=== PATIENT | male | born 1935 | race African-American/Black ===

== ENCOUNTER 2018-02-06 10:30 | Inpatient (IN) | payer BC, MEDICAID ==
[~2018-02-06] VITALS: Ht 180.3 cm; Wt 81.6 kg
--- NOTE | 2018-02-06 10:55 | Emergency Room Report ---
History of Present Illness General Chief Complaint: Generalized Weakness Source: Patient, Family Member, EMS Present Illness HPI 82yo M with h/o Prostate Ca and glaucoma p/w Generalized weakness for many days He has not been eating and drinking He has a chronic indwelling for the catheter and reports it's burning There's been no trauma to this catheter site Allergies: Coded Allergies: No Known Allergies (Unverified , 02/06/18) Patient History Past Medical History: see triage record Reviewed Nursing Documentation: PMH: Agreed; PSxH: Agreed Nursing Documentation-PMH Past Medical History: No History, Except For Hx Cancer: Yes - PROSTATE, PANCREATIC Review of Systems All Other Systems: negative except mentioned in HPI Physical Exam Vital Signs Date Time Temp Pulse Resp B/P (MAP) Pulse Ox O2 Delivery O2 Flow Rate FiO2 02/06/18 10:22 120 20 70/48 99 Sp02 EP Interpretation: reviewed, normal General Appearance: alert, moderate distress, cachetic Head: normocephalic Eyes: bilateral eye normal inspection, bilateral eye PERRL, bilateral eye EOMI ENT: normal ENT inspection, hearing grossly normal, normal pharynx, no angioedema, normal voice, dry mucus membranes Neck: normal inspection, full range of motion, supple, supple/symm/no masses Respiratory: chest non-tender, lungs clear, normal breath sounds, chest symmetrical, palpation of chest normal Cardiovascular #1: normal peripheral pulses, regular rate, rhythm Cardiovascular #2: 1+ radial (R), 1+ radial (L) Gastrointestinal: normal inspection, non tender, soft, no mass, no guarding, no rebound Rectal: deferred Genitourinary: normal inspection, no CVA tenderness Musculoskeletal: back normal, gait/station normal, normal range of motion, non- tender, no calf tenderness Neurologic: alert, responsive, lab head III-XII nml as tested, motor strength/tone normal, sensory intact, speech normal Psychiatric: judgement/insight normal, memory normal, mood/affect normal, no suicidal/homicidal ideation Skin: normal color, no rash, warm/dry, normal turgor Lymphatic: no adenopathy Medical Decision Making Diagnostic Impression: Primary Impression: UTI (urinary tract infection) ER Course Patient found to be septic Treated with the sepsis bundle of 30 mL/kg normal saline bolus, blood cultures, lactic acid, respiratory antibiotics within the first hour of arrival Repeat focused to sepsis examination showed patient to have improved perfusion and improvement in his hypotension However, he did get another bolus of fluid despite that as he was still tachycardic to the 100's He had intractable hiccups so was given 2.5 mg of Haldol and lidocaine patches for his chronic back pain He was admitted to Dr. Gillette, dx uti and sepsis His nicole catheter he came in with was dc'd in the ED EKG Diagnostic Results EKG Time: 10:40 EP Interpretation: RBBB, no st-t changes, no TWI Rate: tachycardiac Rhythm: NSR ST Segments: no acute changes Rhythm Strip Diag. Results Rhythm Strip Time: 12:28 EP Interpretation: yes Rate: 109 Rhythm: NSR, no PVC's, no ectopy Chest X-Ray Diagnostic Results Chest X-Ray Diagnostic Results : Chest X-Ray Ordered: Yes # of Views/Limited/Complete: 1 View Indication: Other EP Interpretation: Yes Interpretation: no consolidation, no effusion, no pneumothorax, no acute cardiopulmonary disease Impression: No acute disease Electronically Signed by: Michael Brewer MD Last Vital Signs Date Time Temp Pulse Resp B/P (MAP) Pulse Ox O2 Delivery O2 Flow Rate FiO2 02/06/18 10:22 120 20 70/48 99 Status: improved Disposition: ADMITTED INPATIENT Admit Decision Time: 12:52 Condition: Improved Signed Out To: Dr. Gillette Scripts No Active Prescriptions or Reported Meds MICHAEL BREWER M.D February 06, 2018 10:55
[2018-02-06 11:48] VITALS: BP 95/63
[2018-02-06 11:51] LABS: EOSINOPHILS % (AUTO) 0.9 % (0.0-3.0); HEMATOCRIT 26.1 % (42.0-52.0); HEMOGLOBIN 8.4 G/DL (14.2-18.0); LYMPHOCYTES % (AUTO) 11.9 % (20.0-45.0); MEAN CORPUSCULAR VOLUME 83 FL (80-99); MONOCYTES % (AUTO) 3.2 % (1.0-10.0); NEUTROPHILS % (AUTO) 83.1 % (45.0-75.0); PLATELET COUNT 186 K/UL (150-450); RED BLOOD COUNT 3.13 M/UL (4.70-6.10); RED CELL DISTRIBUTION WIDTH 18.7 % (11.6-14.8); WHITE BLOOD COUNT 4.1 K/UL (4.8-10.8)
[2018-02-06] MEDS ORDERED: Haloperidol 5mg/ml Inj IM ONE (12:30)
[2018-02-06 12:40] LABS: APPEARANCE,URINE TURBID; BILIRUBIN, URINE NEGATIVE (NEGATIVE); COLOR,URINE BROWN; GLUCOSE, URINE (UA) NEGATIVE (NEGATIVE); KETONES,URINE NEGATIVE (NEGATIVE); LEUKOCYTE ESTERASE ,URINE 3+ (NEGATIVE); NITRITE,URINE NEGATIVE (NEGATIVE); PH,URINE 9 (4.5-8.0); PROTEIN,URINE 3+ (NEGATIVE); UROBILINOGEN,URINE NORMAL MG/DL (0.0-1.0)
[2018-02-06 12:43] LABS: ALANINE AMINOTRANSFERASE 24 U/L (12-78); ALKALINE PHOSPHATASE 223 U/L (46-116); ANION GAP 22 mmol/L (5-15); ASPARTATE AMINO TRANSFERASE 41 U/L (15-37); CARBON DIOXIDE 11 MMOL/L (21-32); CHLORIDE 95 MMOL/L (98-107); CKMB 0.6 NG/ML (0.0-3.6); CREATINE KINASE 137 U/L (26-308); SODIUM 129 MMOL/L (136-145)
[2018-02-06 12:53] LABS: ALBUMIN 1.6 G/DL (3.4-5.0); BLOOD UREA NITROGEN 130 mg/dL (7-18); CALCIUM 7.1 MG/DL (8.5-10.1); CREATININE 3.2 MG/DL (0.55-1.30)
[2018-02-06 12:55] LABS: POTASSIUM 6.6 MMOL/L (3.5-5.1)
[2018-02-06] MEDS ORDERED: Sodium Polystyrene Sulfonate 15gm Powder ORAL ONE (13:00)
--- NOTE | 2018-02-06 13:34 | Diagnostic Imaging Report ---
Indication: Dyspnea Comparison: None A single view chest radiograph was obtained. Findings: There is no obvious infiltrate identified. Heart size is normal. Bones are osteopenic with abnormal mineralization. Endplates appear sclerotic. IMPRESSION: No acute cardiopulmonary disease identified Abnormal bones. 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 Correlate clinically
[2018-02-06 14:07] VITALS: BP 98/62
[2018-02-06] MEDS ORDERED: BRIMONIDINE TART5 ML BOTH EYES (15:28)
[2018-02-06] MEDS ORDERED: IBUPROFEN600 MG ORAL (15:28)
[2018-02-06] MEDS ORDERED: LATANOPROST2.5 ML BOTH EYES (15:28)
[2018-02-06] MEDS ORDERED: COSOPT1 DRO2 BOTH EYES (15:28)
[2018-02-06] MEDS ORDERED: Norco 5mg/325mg tab ORAL PRN (17:00)
[2018-02-06] MEDS ORDERED: cefTRIAXone 1 GM in D5W 110 ML IVPB SCH (18:00)
[2018-02-06] MEDS: Morphine Sulfate 4mg/ml Inj IVP PRN ×2 (18:22→22:29)
[2018-02-06] MEDS: Latanoprost 0.005% Opth 2.5ml Soln BOTH EYES SCH ×2 (18:23→22:29)
[2018-02-06] MEDS: Brimonidine 0.2% Opth Sol BOTH EYES SCH (18:23)
[2018-02-06] MEDS: Cosopt Opth Soln 10 mL Btl BOTH EYES SCH (18:23)
[2018-02-06 20:00] VITALS: BP 92/61
[2018-02-06] MEDS: Heparin 5000 units/ml inj SUBQ SCH (22:31)
[2018-02-07] VITALS: BP 99/55
[2018-02-07 04:00] VITALS: BP 94/58
[2018-02-07 08:00] VITALS: BP 100/55
[2018-02-07] MEDS: Brimonidine 0.2% Opth Sol BOTH EYES SCH ×3 (08:57→17:48)
[2018-02-07] MEDS: Cosopt Opth Soln 10 mL Btl BOTH EYES SCH ×2 (08:57→17:49)
[2018-02-07] MEDS: Morphine Sulfate 4mg/ml Inj IVP PRN ×3 (08:58→20:54)
[2018-02-07] MEDS: Heparin 5000 units/ml inj SUBQ SCH ×2 (09:06→21:10)
[2018-02-07 12:00] VITALS: BP 99/61
--- NOTE | 2018-02-07 14:41 | Diagnostic Imaging Report ---
Indication: Prostate carcinoma whole-body pain Technique: 26.4 mCi of technetium 99 M-MDP was injected intravenously. A whole-body bone scan was then performed in anterior and posterior projections. Several spot images were also obtained. Comparison: None Findings: . There is asymmetric pelvic uptake with increased uptake in the left aspect of the ischium posterior acetabulum. There is abnormal increased uptake along the lateral part of the right iliac bone. Findings suspicious for metastatic disease. Also the L3-L4 and L5 levels appear slightly more increased uptake within the other vertebra. Several uptake thoracic vertebra also show increased uptake. The findings are somewhat equivocal. Usually metastatic neoplasm due to prostate CA is not equivocal. Recommend correlation with MRI. Impression: Suspicion of metastatic disease in the pelvis and spine as described above. Due to the equivocal findings on the current bone scan, recommend MRI correlation.
[2018-02-07] MEDS: Piperacillin/Tazobactam 2.25 GM in D5W 110 ML IVPB SCH (15:03)
[2018-02-07 16:00] VITALS: BP 94/71
[2018-02-07] MEDS ORDERED: Heparin 2000 units/Ns 1000ml IV PRN (16:30)
[2018-02-07] MEDS ORDERED: Lidocaine 1% Plain 30 ml INJ SCH (16:30)
--- NOTE | 2018-02-07 16:45 | History and Physical Report ---
DATE OF ADMISSION: 02/06/2018 HISTORY OF PRESENT ILLNESS: This is an 82-year-old male with previous history of advanced prostate carcinoma. He has been known to have this for about 6 years ago. He was brought in by family with failure to thrive. The patient has chronic De La Vega which was removed by the ER physician. Overnight, this has been replaced by Urology. He has not been eating or drinking. He has been complaining of generalized weakness. Overnight, he has also been found to have bacteremia with gram-negative rods. PAST MEDICAL HISTORY: Notable for glaucoma and advanced prostate carcinoma. ALLERGIES: None to . REVIEW OF SYSTEMS: Denies any headaches, hematemesis, melena. He is very weak and debilitated complaining of headache and generalized body pain. SURGERIES: None reported. PHYSICAL EXAMINATION: GENERAL: Reveals an elderly male. HEENT: Unremarkable. LUNGS: Shows clear breath sounds bilaterally. ABDOMEN: Soft. There is discomfort in the lower abdomen. EXTREMITIES: There is no edema. LABORATORY DATA: Lab testing shows white count 4.1, hemoglobin 8.4. Potassium repeat has been 7.1. Lactic acid down to 2.4. As discussed previously, he has bacteremia. Creatinine 3.2. IMPRESSION: 1. Sepsis. 2. Bacteremia. 3. Prostate CA. 4. Hyperkalemia. 5. Renal failure. 6. Chronic De La Vega. DISCUSSION: I have consulted Nephrology, Urology, and ID. Awaiting consultations. The patient will need aggressive intervention, however, it is my opinion given the fact that he is a poor candidate for cure with advanced age, malnutrition, chronic pain, and likely advanced disease, he may be a candidate for hospice. We will discuss with family. I had a long discussion yesterday as well with them. Await ID evaluation. We will follow carefully. Melo Rodarte M.D. DR: Gloria JOB#: [id number] CC:
--- NOTE | 2018-02-07 16:51 | Diagnostic Imaging Report ---
Indication:Abdominal pain Technique: Grayscale and duplex Doppler imaging of the abdomen performed. Comparison: None Findings: Within the pelvis urinary bladder is demonstrated. De La Vega balloon is clearly seen and there is some thickening of the wall the urinary bladder. Lung the posterior wall the bladder on sagittal images there is a small focus of motion and Doppler signal indicative of flow within the posterior wall the bladder into a fluid-filled structure posteriorly. This may be a large diverticulum of the bladder possibly a Hutch diverticulum. Possibility of a fistula between the bladder and bowel or rectum could be present. Suggest further evaluation with contrast-enhanced CT. CBD is 5 mm. The kidneys are notable for bilateral hydronephrosis. There are multiple renal cysts. Liver is unremarkable. Gallbladder is unremarkable. Pancreas not well seen. Mid to distal aorta are not seen. Dopplerable blood flow within the main portal vein demonstrated. Small liver cyst noted in the left lobe. IMPRESSION: Abnormal urinary bladder with internal debris or blood. Query possibility of a posterior bladder diverticulum versus fistula. Suggest evaluation with a contrast CT of the abdomen and pelvis. Delayed images should be obtained so that enough contrast is excreted into the bladder. Bilateral hydronephrosis. Liver cysts and multiple renal cysts.
--- NOTE | 2018-02-07 17:00 | Consultation ---
DATE OF CONSULTATION: 02/07/2018 INFECTIOUS DISEASES CONSULTATION CONSULTING PHYSICIAN: Julissa Aguilera M.D. REFERRING PHYSICIAN: Melo Rodarte M.D. REASON FOR CONSULTATION: Sepsis. HISTORY OF PRESENTING ILLNESS: This is an 82-year-old gentleman with history of prostate cancer and glaucoma who came in with weakness. He has not been eating or drinking. He was found to have gram-negative sepsis and urinary tract infection and an Infectious Diseases consultation has been obtained for antibiotics. PAST MEDICAL HISTORY: 1. History of prostate cancer. 2. History of glaucoma. 3. Pancreatic cancer. SOCIAL HISTORY: Unknown. FAMILY HISTORY: Unknown. REVIEW OF SYSTEMS: Unable to obtain currently. MEDICATIONS: As an inpatient, the patient is on Xalatan drops, subcutaneous heparin, morphine, Alphagan drops, Cosopt, ceftriaxone, [place]. ALLERGIES: Pork noted. PHYSICAL EXAMINATION: VITAL SIGNS: Temperature of 97.1, T-max of 98.6, pulse of 113, respiratory rate 21, blood pressure 100/55, O2 saturation of 96%. HEENT: Pupils equally reactive to light and accommodation. Mouth appears clean without thrush. NECK: Supple. No adenopathy. No JVD. CARDIOVASCULAR: Regular rate and rhythm. No murmurs. LUNGS: Clear to auscultation bilaterally. No crackles. No wheezes. ABDOMEN: Soft and nontender. No organomegaly. EXTREMITIES: No cyanosis, no clubbing, no edema. LABORATORY DATA: White count 4.1, hemoglobin 8.4, hematocrit 26.1, MCV 83, platelet count of 186, with neutrophils of 83%. Sodium 129 yesterday, potassium 7.1, chloride 95, bicarb 11, BUN 130, creatinine 3.2, glucose of 81, calcium 7.1, total bilirubin 1, AST 41, ALT 24, alkaline phosphatase 223. CK of 137, CK-MB 0.6, troponin 0. Brain natriuretic peptide [id number]. Total protein 6.8 and albumin 1.6. UA showing 2 to 4 white cells. Blood cultures from 02/06/2018 showing gram-negative rods. Urine cultures from 02/06/2018 showing mixed with urogenital contaminant. Chest x-ray showing no acute cardiopulmonary abnormality. ASSESSMENT: This is an 82-year-old gentleman with history of prostate and pancreatic cancer who comes in with. 1. Gram-negative sepsis probably secondary to urinary tract infection. 2. Prostate cancer. 3. Pancreatic cancer. 4. Glaucoma. 5. Hyperkalemia. 6. Hyponatremia. 7. Renal failure. PLAN: 1. We will discontinue ceftriaxone. 2. We will start the patient on Zosyn. 3. We will order an ultrasound abdomen. 4. We will follow up cultures and adjust antibiotics accordingly. I would like to thank Dr. Rodarte for this consultation. Julissa Aguilera M.D. DR: Judith JOB#: [id number] CC: Melo Rodarte M.D.; Fax#: [phone]
[2018-02-07 20:00] VITALS: BP 80/49
[2018-02-07] MEDS: Latanoprost 0.005% Opth 2.5ml Soln BOTH EYES SCH (21:07)
[2018-02-08] VITALS: BP 91/63
[2018-02-08] MEDS: Piperacillin/Tazobactam 2.25 GM in D5W 110 ML IVPB SCH ×4 (00:24→21:18)
[2018-02-08 04:00] VITALS: BP 86/52
[2018-02-08] MEDS: Morphine Sulfate 4mg/ml Inj IVP PRN ×2 (04:43→21:19)
[2018-02-08 07:38] VITALS: BP 94/55
[2018-02-08] MEDS: Heparin 5000 units/ml inj SUBQ SCH ×3 (08:28→21:20)
[2018-02-08] MEDS: Brimonidine 0.2% Opth Sol BOTH EYES SCH ×3 (08:29→18:00)
[2018-02-08] MEDS: Cosopt Opth Soln 10 mL Btl BOTH EYES SCH ×2 (08:29→18:00)
--- NOTE | 2018-02-08 08:39 | Pulmonology Progress Note ---
Assessment/Plan Assessment/Plan 1. Sepsis. 2. Bacteremia. 3. Prostate CA. 4. Hyperkalemia. 5. Renal failure. 6. Chronic De La Vega. DISCUSSION: Discussed with family DNR now Will consult hospice Subjective Interval Events: Moaning Constitutional: Reports: no symptoms HEENT: Repors: no symptoms Respiratory: Reports: no symptoms Cardiovascular: Reports: no symptoms Gastrointestinal/Abdominal: Reports: no symptoms Allergies: Coded Allergies: Pork (Verified Allergy, Unknown, 02/07/18) Objective Last 24 Hour Vital Signs Date Time Temp Pulse Resp B/P (MAP) Pulse Ox O2 Delivery O2 Flow Rate FiO2 02/08/18 07:38 97.2 110 20 94/55 100 Room Air 97.2 02/08/18 04:12 117 02/08/18 04:00 97.2 118 24 86/52 96 Room Air 97.2 02/08/18 00:00 97.2 121 16 91/63 99 Room Air 97.2 02/07/18 23:40 109 02/07/18 20:36 104 02/07/18 20:00 97.4 112 22 80/49 98 Room Air 97.4 02/07/18 16:07 105 02/07/18 16:00 97.8 89 18 94/71 97 Room Air 97.8 02/07/18 12:00 98.0 117 18 99/61 99 Room Air 98.0 02/07/18 11:52 113 Intake and Output 02/07/18 02/08/18 19:00 07:00 Intake Total 1030 ml 220 ml Output Total 80 ml 800 ml Balance 950 ml -580 ml Intake Oral 280 ml IV Total 750 ml 220 ml Output Urine Total 80 ml 800 ml General Appearance: no acute distress HEENT: normocephalic Respiratory/Chest: chest wall non-tender, lungs clear Cardiovascular: normal peripheral pulses, normal rate Abdomen: normal bowel sounds Microbiology Date/Time Source Procedure Growth Status 02/06/18 11:20 Blood Blood Culture - Preliminary Gram Negative Bacillus 1 Resulted 02/06/18 11:15 Blood Blood Culture - Preliminary Gram Negative Bacillus 1 Resulted 02/06/18 12:25 Urine,Clean Catch Urine Culture - Final Mixed Urogenital Contaminants Complete 02/06/18 17:41 Rectum VRE Culture - Final NO VANCOMYCIN RESISTANT ENTEROCOCCUS ... Complete Current Medications Medications (Trade) Dose Ordered Sig/Tamra Route PRN Reason Start Time Stop Time Status Last Admin Dose Admin Acetaminophen/ Hydrocodone Bitart ([place] 5/325) 1 tab Q4H PRN ORAL Moderate Pain (Pain Scale 4-6) 02/06/18 17:00 02/13/18 16:59 02/07/18 02:07 Brimonidine Tartrate (Alphagan) 1 drop TID BOTH EYES 02/06/18 18:00 03/08/18 17:59 02/08/18 08:29 Dorzolamide/ Timolol (Cosopt) 1 drop BID BOTH EYES 02/06/18 18:00 03/08/18 17:59 02/08/18 08:29 Heparin Sodium (Porcine) (Heparin 5000 units/ml) 5,000 units EVERY 12 HOURS SUBQ 02/06/18 21:00 03/08/18 20:59 02/07/18 21:10 Heparin Sodium/ Sodium Chloride (Heparin 2000 units/Ns 1000ml premix) 2,000 unit ONCE PRN IV PICC PLACEMENT 02/07/18 16:30 02/08/18 23:59 Latanoprost (Xalatan) 1 drop BEDTIME BOTH EYES 02/06/18 21:00 03/08/18 20:59 02/07/18 21:07 Lidocaine HCl (Xylocaine 1% 30ml) 30 ml ONCE INJ 02/07/18 16:30 02/08/18 15:00 Morphine Sulfate (Morphine Sulfate) 1 mg Q4H PRN IVP Severe Pain (Pain Scale 7-10) 02/06/18 18:15 02/13/18 18:14 02/08/18 04:43 Piperacillin Sod/ Tazobactam Sod 2.25 gm/Dextrose 110 ml @ 220 mls/hr EVERY 8 HOURS IVPB 02/07/18 14:00 02/12/18 13:59 02/08/18 05:47 Sodium Chloride 1,000 ml @ 75 mls/hr [id number] IV 02/06/18 17:30 03/08/18 17:29 02/07/18 21:07 Melo Rodarte MD February 08, 2018 08:39
[2018-02-08 09:51] LABS: ANION GAP 19 mmol/L (5-15); BLOOD UREA NITROGEN 173 mg/dL (7-18); CALCIUM 7.7 MG/DL (8.5-10.1); CARBON DIOXIDE 14 MMOL/L (21-32); CHLORIDE 103 MMOL/L (98-107); CREATININE 2.5 MG/DL (0.55-1.30); SODIUM 135 MMOL/L (136-145)
[2018-02-08 09:56] LABS: POTASSIUM 6.5 MMOL/L (3.5-5.1)
--- NOTE | 2018-02-08 11:44 | Infectious Diseases Prog Note ---
Assessment/Plan Assessment/Plan A: 1. Gram-negative sepsis probably secondary to urinary tract infection. 2. Prostate cancer. 3. Pancreatic cancer. 4. Glaucoma. 5. Hyperkalemia. 6. Hyponatremia. 7. Renal failure. 8. B/L hydronephrosis 9. Abnormal urinary bladder P: Continue Zosyn Will f/u cultures Poor prognosis Subjective ROS Limited/Unobtainable: Yes Constitutional: Reports: fatigue Allergies: Coded Allergies: Pork (Verified Allergy, Unknown, 02/07/18) Objective Vital Signs Last 24 Hour Vital Signs Date Time Temp Pulse Resp B/P (MAP) Pulse Ox O2 Delivery O2 Flow Rate FiO2 02/08/18 07:38 97.2 110 20 94/55 100 Room Air 97.2 02/08/18 07:26 115 02/08/18 04:12 117 02/08/18 04:00 97.2 118 24 86/52 96 Room Air 97.2 02/08/18 00:00 97.2 121 16 91/63 99 Room Air 97.2 02/07/18 23:40 109 02/07/18 20:36 104 02/07/18 20:00 97.4 112 22 80/49 98 Room Air 97.4 02/07/18 16:07 105 02/07/18 16:00 97.8 89 18 94/71 97 Room Air 97.8 02/07/18 12:00 98.0 117 18 99/61 99 Room Air 98.0 02/07/18 11:52 113 Height (Feet): 5 Height (Inches): 11.00 Weight (Pounds): 180 HEENT: other - dry mouth Respiratory/Chest: lungs clear Cardiovascular: tachycardia Abdomen: soft, non tender Genitourinary: other - De La Vega catheter, minimal blood around De La Vega Extremities: no edema Neurologic/Psychiatric: alert, responsive Microbiology Date/Time Source Procedure Growth Status 02/06/18 11:20 Blood Blood Culture - Preliminary Gram Negative Bacillus 1 Resulted 02/06/18 11:15 Blood Blood Culture - Preliminary Gram Negative Bacillus 1 Resulted 02/06/18 17:41 Nasal Nares MRSA Culture - Final NO METHICILLIN RESISTANT STAPH AUREUS... Complete 02/06/18 12:25 Urine,Clean Catch Urine Culture - Final Mixed Urogenital Contaminants Complete 02/06/18 17:41 Rectum VRE Culture - Final NO VANCOMYCIN RESISTANT ENTEROCOCCUS ... Complete Laboratory Tests Test 02/08/18 09:10 Sodium Level 135 MMOL/L (136-145) L Potassium Level 6.5 MMOL/L (3.5-5.1) *H Chloride Level 103 MMOL/L (98-107) Carbon Dioxide Level 14 MMOL/L (21-32) L Anion Gap 19 mmol/L (5-15) H Blood Urea Nitrogen 173 mg/dL (7-18) H Creatinine 2.5 MG/DL (0.55-1.30) H Estimat Glomerular Filtration Rate mL/min (>60) Glucose Level 70 MG/DL (74-106) L Calcium Level 7.7 MG/DL (8.5-10.1) L Current Medications Medications (Trade) Dose Ordered Sig/Tamra Route PRN Reason Start Time Stop Time Status Last Admin Dose Admin Acetaminophen/ Hydrocodone Bitart ([place] 5/325) 1 tab Q4H PRN ORAL Moderate Pain (Pain Scale 4-6) 02/06/18 17:00 02/13/18 16:59 02/07/18 02:07 Brimonidine Tartrate (Alphagan) 1 drop TID BOTH EYES 02/06/18 18:00 03/08/18 17:59 02/08/18 08:29 Dorzolamide/ Timolol (Cosopt) 1 drop BID BOTH EYES 02/06/18 18:00 03/08/18 17:59 02/08/18 08:29 Heparin Sodium (Porcine) (Heparin 5000 units/ml) 5,000 units EVERY 12 HOURS SUBQ 02/06/18 21:00 03/08/18 20:59 02/07/18 21:10 Latanoprost (Xalatan) 1 drop BEDTIME BOTH EYES 02/06/18 21:00 03/08/18 20:59 02/07/18 21:07 Morphine Sulfate (Morphine Sulfate) 1 mg Q4H PRN IVP Severe Pain (Pain Scale 7-10) 02/06/18 18:15 02/13/18 18:14 02/08/18 04:43 Piperacillin Sod/ Tazobactam Sod 2.25 gm/Dextrose 110 ml @ 220 mls/hr EVERY 8 HOURS IVPB 02/07/18 14:00 02/12/18 13:59 02/08/18 05:47 Sodium Chloride 1,000 ml @ 75 mls/hr [id number] IV 02/06/18 17:30 03/08/18 17:29 02/08/18 09:54 KAMI VILLAGOMEZ February 08, 2018 11:44
[2018-02-08 12:00] VITALS: BP 92/52
--- NOTE | 2018-02-08 12:54 | Physician Query ---
--------- THIS DOCUMENT IS A PERMANENT PART OF THE MEDICAL RECORD --------- PLEASE COMPLETE DOCUMENT BEFORE SIGNING Dear Dr. Rodarte Date: 2017 Manager Erp/CDS Name: Opal Santiago Manager Erp/CDS Phone No.: Exercise your independent professional judgment when responding to the query. Questions asked do not imply a particular answer is desired or expected. We greatly appreciate your clarification on this issue. CLINICAL DOCUMENTATION STATES: As per H & P from 02/06/2018, patient is not eating and drinking and complained of generalized weakness with failure to thrive. CLINICAL FINDINGS SHOW: Albumin level on the day of admission: 02/06/2018: Albumin level 1.6 Based on your clinical judgement, Please select the most appropriate option: [] Mild [] Moderate [] Protein/Calorie Malnutrition [] Protein Malnutrition >Serum albumin 2.8 to 3.4 g/dL or Pre-albumin 5 to 7 mg/dl (3) >Inadequate nutritional intake (1, 2, 3, 4) >NPO > 5 days >Weight loss: 5% in 1 month or 7.5% in 3 months or 10% in 6 months (1,3,4) >BMI 16 to 18.4 or Weight <90 of ideal body weight (1,2,3,4) [] Serum Malnutrition (Protein/Calorie) [] Severe Protein Malnutrition >Serum Albumin < 2.8 g/dL (1,2) >Lymphocytes < 1500/uL (2) >Inadequate nutritional intake3 , high stress e.g. major trauma, sepsis, pancreatitis, coles etc. >Decubitus ulcers (1,2) , skin breakdown(2), easy hair pluckability >Weight <80% standard for height (2) >Triceps skin fold <3 mm2 >Mid-arm muscle circumference <25 cm2 >Creatinine-height index <60% standard (2) _ [] Hypoalbuminemia [] Emancipated w/ Malnutrition [] [place] (rare in [place]) [] Marasmus [] Other [] Unable to determine [] Not Applicable Condition Present on Admission: [] Yes [] No [ ] Unable to determine Please also document in your Progress Notes and/or Discharge Summary and indicate if the condition was present on admission. M.D. References: 1 [facility] [place] Board. (2007). Nutritional support strategy for protein -energy malnutrition in the elderly. Clinical Practice Guidelines. 2 Diann Quintanilla (2011). Malnutrition and nutritional assessment. In Harris Hartman (18th Ed.) Ty's Principle of Internal Medicine ([id number]) [place], [place]: [facility] 3 Rashad Carcamo (2001). Clinical Nutrition: Protein-energy malnutrition in the inpatient. [place] [employer] Journal, vol. 165 no. 10 (pp. 5264- 6286 ). 4 Mihai Macias (2012). Geriactric Nutrition: Nutritional Issues in Older Adults. [email or web address]
[2018-02-08 16:06] VITALS: BP 85/46
[2018-02-08] MEDS ORDERED: Sodium Polystyrene Sulfonate 15gm Powder ORAL SCH (18:00)
[2018-02-08 20:38] VITALS: BP 76/50
[2018-02-08] MEDS: Latanoprost 0.005% Opth 2.5ml Soln BOTH EYES SCH (21:19)
[2018-02-08 21:58] LABS: HEMATOCRIT 22.8 % (42.0-52.0); HEMOGLOBIN 7.1 G/DL (14.2-18.0); MEAN CORPUSCULAR VOLUME 83 FL (80-99); PLATELET COUNT 10 K/UL (150-450); RED BLOOD COUNT 2.75 M/UL (4.70-6.10); RED CELL DISTRIBUTION WIDTH 19.3 % (11.6-14.8); WHITE BLOOD COUNT 7.5 K/UL (4.8-10.8)
[2018-02-09 00:12] VITALS: BP 72/46
[2018-02-09 04:00] VITALS: BP 65/45
[2018-02-09] MEDS ORDERED: Tubing IV Secondary IV ONE (04:04)
--- NOTE | 2018-02-09 18:18 | Cardiology Report ---
APPROVED REPORT EKG Measurement Heart [id number] Sinus tachycardia Left axis deviation Right bundle branch block Septal infarct, age undetermined Abnormal ECG
--- NOTE | 2018-02-10 14:49 | Discharge Summary ---
Discharge Summary Discharge Summary Discharge Summary DATE OF ADMISSION: 02/06/2018 DATE OF DISCHARGE: 02/09/2018 CONSULTANTS: Dr. Julissa Aguilera BRIEF SUMMARY: Patient is an unfortunate 82-year-old male, with history of advanced prostate carcinoma. He was brought in by family due to failure to thrive. He has not been eating or drinking. He has chronic indwelling De La Vega. On evaluation at ED, he was found to be septic. Blood work showed hemoglobin 8.4, hematocrit was 26. Hyponatremia, sodium 129, potassium 6.6, chloride 95, BUN was elevated to 130, creatinine 3.2. Chest x-ray showed no acute disease. EKG was in sinus tachycardia. He was given IV bolus. He was given insulin and dextrose and 30 g of Kayexalate. He was admitted for sepsis. He was initially given ceftriaxone. He was seen by infectious disease specialist and was started on Zosyn. Blood culture with Escherichia coli. Urine culture with mixed contaminants. He had a bone scan results showed suspicion of metastatic disease in the pelvis and spine. Patient has overall poor prognosis. Per family wishes patient was placed on DO NOT RESUSCITATE and DO NOT INTUBATE. Patient for hospice. He eventually . FINAL DIAGNOSES: Gram-negative sepsis probably secondary to UTI Bacteremia Prostate CA Hyperkalemia Renal failure Chronic De La Vega Severe protein calorie malnutrition Glaucoma Hyponatremia Bilateral hydronephrosis DISPOSITION: Patient I have been assigned to dictate discharge summary on this account, and I was not involved in the patient's management. Madina Hutchins NP February 10, 2018 14:49
== END 2018-02-09 04:05 | disposition expired | DRG 871 ==
LOC: EDBD 10:30 → EMR 11:41 → 2E 12:18 → EDBD 12:18 → EDBEDREQ 13:14
DX: A41.89 Other specified sepsis (principal); E43 Unspecified severe protein-calorie malnutrition; N39.0 Urinary tract infection, site not specified; E87.1 Hypo-osmolality and hyponatremia; N13.30 Unspecified hydronephrosis; C25.9 Malignant neoplasm of pancreas, unspecified; Z68.1 Body mass index [BMI] 19.9 or less, adult; C61 Malignant neoplasm of prostate; E87.5 Hyperkalemia; N19 Unspecified kidney failure; H40.9 Unspecified glaucoma; Z66 Do not resuscitate
CPT/HCPCS: 36415; 71045; 76700; 78306; 80048; 80053; 81003; 82550; 82553; 83605; 83880; 84132; 84484; 85007; 85025; 87040; 87081; 87086; 87181; 93005; 99285